=== PATIENT | male | born 1975 | race Caucasian/White ===

== ENCOUNTER 2018-12-15 14:30 | Emergency (ER) | payer MEDICAID, OTHER ==
[~2018-12-15] VITALS: Ht 175.3 cm; Wt 62.1 kg
[2018-12-15 14:44] VITALS: BP 114/60
--- NOTE | 2018-12-15 15:01 | NUR ---
PT TO ROOM 9 W/ C/O DENTAL PAIN X3-4 DAYS. PT RESTING ON GURNEY. NANCIE PHILLIP AT BEDSIDE.
[2018-12-15] MEDS ORDERED: HYDROcodone/APAP 5/325 TABLET ONE (15:15)
[2018-12-15] MEDS ORDERED: CLINDAMYCIN 300 MG CAPSULE ONE (15:15)
[2018-12-15] MEDS ORDERED: CLINDAMYCIN 300 MG CAPSULE PO ONE (15:30)
[2018-12-15] MEDS ORDERED: HYDROcodone/APAP 5/325 TABLET PO ONE (15:30)
== END 2018-12-15 15:50 | disposition home or self-care (01) ==
LOC: ED 15:44
DX: K04.7 Periapical abscess without sinus (principal); K02.9 Dental caries, unspecified; K08.89 Other specified disorders of teeth and supporting structures
CPT/HCPCS: 99283